=== PATIENT | female | born 1990 | race African-American/Black ===

== ENCOUNTER 2023-11-14 12:12 | Emergency (ER) | payer MEDICAID ==
[~2023-11-14] VITALS: Ht 165.1 cm; Wt 86.2 kg
[2023-11-14 12:17] VITALS: BP 153/99; PULSE 110; RESP 16; TEMP 98.6; O2SAT 100
[2023-11-14] MEDS ORDERED: SULF1TAB48 MT (12:51)
[2023-11-14] MEDS ORDERED: IBUP-2029 MT (12:51)
== END 2023-11-14 16:32 | disposition home or self-care (01) ==
LOC: ER 13:24
DX: L02.31 Cutaneous abscess of buttock (principal); J45.909 Unspecified asthma, uncomplicated; E11.9 Type 2 diabetes mellitus without complications; I10 Essential (primary) hypertension; F12.10 Cannabis abuse, uncomplicated
CPT/HCPCS: 81025; 99282; Z7610 ×3

== ENCOUNTER 2024-02-16 15:18 | Emergency (ER) | payer MEDICAID ==
[~2024-02-16] VITALS: Ht 165.1 cm; Wt 88.0 kg
[~2024-02-16 15:18] MED LIST: CEPH500C2 MT; IBUP-2029 MT; METF-414 MT; SULF1TAB48 MT
[2024-02-16 15:21] VITALS: BP 174/110; PULSE 114; RESP 16; TEMP 98; O2SAT 100
[2024-02-16] MEDS ORDERED: BACITRACIN ZINC OINT UDPKT TOP ONE (16:30)
[2024-02-16] MEDS ORDERED: LIDOCAINE HCL/PF 1% 10 MG/ML 5ML VIAL INFIL ONE (16:30)
[2024-02-16] MEDS ORDERED: CEPH500T MT (18:36)
[2024-02-16] MEDS ORDERED: BO1 TP (18:36)
[2024-02-16] MEDS ORDERED: LIDOCAINE HCL/PF 1% 10 MG/ML 5ML VIAL INFIL NR (19:00)
[2024-02-16] MEDS ORDERED: BACITRACIN ZINC OINT UDPKT TOP NR (19:00)
== END 2024-02-16 18:53 | disposition home or self-care (01) ==
LOC: ER 15:18
DX: L03.011 Cellulitis of right finger (principal); J45.909 Unspecified asthma, uncomplicated; I10 Essential (primary) hypertension; E11.9 Type 2 diabetes mellitus without complications; Z79.899 Other long term (current) drug therapy
CPT/HCPCS: 10060; 99284; J3490; Z7610 ×3; 12001

== ENCOUNTER 2024-07-03 20:02 | Emergency (ER) | payer MEDICAID ==
[~2024-07-03] VITALS: Ht 165.1 cm; Wt 86.0 kg
[~2024-07-03 20:02] MED LIST changes: +BO1 TP; +CEPH500T MT
[2024-07-03 20:06] VITALS: O2SAT 100
[2024-07-03 20:18] VITALS: BP 159/100; PULSE 91; RESP 16; TEMP 36.7; O2SAT 100
[2024-07-03] MEDS: LIDOCAINE HCL/PF 1% 10 MG/ML 5ML VIAL INFIL ONE (22:48)
[2024-07-03] MEDS: BACITRACIN ZINC OINT UDPKT TOP ONE (22:48)
[2024-07-03] MEDS ORDERED: AMOX1TAB16 MT (23:18)
[2024-07-03] MEDS ORDERED: NEOM1PAC6 TP (23:19)
== END 2024-07-03 23:58 | disposition home or self-care (01) ==
LOC: ER 20:02
DX: L03.011 Cellulitis of right finger (principal); E11.9 Type 2 diabetes mellitus without complications; I10 Essential (primary) hypertension; J45.909 Unspecified asthma, uncomplicated; Z79.84 Long term (current) use of oral hypoglycemic drugs; Z91.018 Allergy to other foods; Z79.899 Other long term (current) drug therapy
CPT/HCPCS: 10060; 99284; J2003; Z7610 ×3

== ENCOUNTER 2024-09-01 12:09 | Emergency (ER) | payer MEDICAID ==
[~2024-09-01] VITALS: Ht 165.1 cm; Wt 86.1 kg
[~2024-09-01 12:09] MED LIST changes: +AMOX1TAB16 MT; +NEOM1PAC6 TP
[2024-09-01 12:15] VITALS: O2SAT 100
[2024-09-01 12:40] VITALS: BP 133/89; PULSE 116; RESP 16; TEMP 37; O2SAT 100
[2024-09-01] MEDS ORDERED: LIDOCAINE HCL 1% 20ML VIAL INFIL ONE (13:30)
[2024-09-01] MEDS ORDERED: AMOX1TAB16 MT (14:45)
[2024-09-02] MEDS ORDERED: LIDO700A15 TP (22:30)
== END 2024-09-01 15:14 | disposition home or self-care (01) ==
LOC: ER 12:09
DX: L05.01 Pilonidal cyst with abscess (principal); E11.9 Type 2 diabetes mellitus without complications; I10 Essential (primary) hypertension; J45.909 Unspecified asthma, uncomplicated; Z79.84 Long term (current) use of oral hypoglycemic drugs
CPT/HCPCS: 81025; 10080; 99283; J3490; Z7610 ×2

== ENCOUNTER 2024-09-02 19:33 | Emergency (ER) | payer MEDICAID ==
[~2024-09-02] VITALS: Ht 165.1 cm; Wt 87.0 kg
[2024-09-02 19:45] VITALS: O2SAT 100
[2024-09-02 19:49] VITALS: TEMP 36.7; O2SAT 100
[2024-09-02] MEDS: LIDOCAINE HCL/EPINEPHRINE 1%-EPI 1:100,000 20ML VIAL INFIL ONE (22:18)
[2024-09-02 22:30] VITALS: BP 143/86; PULSE 124; RESP 16
[2024-09-02] MEDS ORDERED: LIDO700A15 TP (22:30)
[2024-09-02] MEDS: KETOROLAC 30MG/ML VIAL IM ONE (22:30)
== END 2024-09-03 00:26 | disposition home or self-care (01) ==
LOC: ER 19:33
DX: L02.31 Cutaneous abscess of buttock (principal); J45.909 Unspecified asthma, uncomplicated; I10 Essential (primary) hypertension; Z79.84 Long term (current) use of oral hypoglycemic drugs; E11.9 Type 2 diabetes mellitus without complications; Z91.018 Allergy to other foods
CPT/HCPCS: 99283; 81025; 96372; J1885

== ENCOUNTER 2024-09-26 17:34 | Emergency (ER) | payer MEDICAID ==
[~2024-09-26] VITALS: Ht 165.1 cm; Wt 86.2 kg
[~2024-09-26 17:34] MED LIST changes: +LIDO-53 TP
[2024-09-26 17:38] VITALS: O2SAT 100
[2024-09-26] MEDS ORDERED: AMOX1TAB16 MT (19:30)
[2024-09-26] MEDS ORDERED: NAPR-1486 MT (19:30)
[2024-09-26 19:41] VITALS: BP 146/95; PULSE 103; RESP 16; TEMP 36.9; O2SAT 100
== END 2024-09-26 19:47 | disposition home or self-care (01) ==
LOC: ER 17:34
DX: K04.7 Periapical abscess without sinus (principal); E11.9 Type 2 diabetes mellitus without complications; I10 Essential (primary) hypertension; J45.909 Unspecified asthma, uncomplicated; F19.90 Other psychoactive substance use, unspecified, uncomplicated; Z79.899 Other long term (current) drug therapy
CPT/HCPCS: 99283

== ENCOUNTER 2024-10-30 15:01 | Emergency (ER) | payer MEDICAID ==
[~2024-10-30] VITALS: Ht 165.1 cm; Wt 86.0 kg
[~2024-10-30 15:01] MED LIST changes: +NAPR-1486 MT
[2024-10-30 15:09] VITALS: O2SAT 100
[2024-10-30] MEDS ORDERED: BO1 TP (15:34)
[2024-10-30] MEDS ORDERED: ALBU90AE INH (15:34)
[2024-10-30 15:42] VITALS: BP 135/75; PULSE 99; RESP 18; TEMP 36.8; O2SAT 99
== END 2024-10-30 15:43 | disposition home or self-care (01) ==
LOC: ER 15:01
DX: S41.111D Laceration without foreign body of right upper arm, subsequent encounter (principal); S21.111D Laceration without foreign body of right front wall of thorax without penetration into thoracic cavity, subsequent encounter; Z79.899 Other long term (current) drug therapy; Z79.84 Long term (current) use of oral hypoglycemic drugs; Z79.1 Long term (current) use of non-steroidal anti-inflammatories (NSAID); Z76.0 Encounter for issue of repeat prescription; X58.XXXD Exposure to other specified factors, subsequent encounter
CPT/HCPCS: 99282; Z7610; 99281; A4606